=== PATIENT | male | born 1970 | race American Indian/Alaskan Native ===

== ENCOUNTER 2020-02-27 23:27 | Inpatient (IN) | payer OTHER ==
[2020-02-27] MEDS ORDERED: ASPIRIN 325 MG TAB PO ONE (23:45)
--- NOTE | 2020-02-27 23:53 | Emergency Department Report ---
ED General Adult HPI - General Chief complaint: Neuro Symptoms/Deficit Stated complaint: RT SIDE NUMBNESS/SLURRED SPEECH PUI?: No Time Seen by Provider: 02/27/20 23:49 Source: patient, RN notes reviewed Mode of arrival: Ambulatory Limitations: Physical Limitation - History of Present Illness Initial comments: The patient was evaluated in the emergency department for symptoms described in the history of present illness. He/she was evaluated in the context of the global COVID-19 pandemic, which necessitated consideration that the patient might be at risk for infection with the virus that causes COVID-19. Institutional protocols and algorithms that pertain to the evaluation of patients at risk for COVID-19 are in a state of rapid change based on information released by regulatory bodies including the CDC and federal and state organizations. These policies and algorithms were followed during the patient's care in the emergency department. Please note that these policies, procedures and recommendations changed on a rapid basis. Patient is a 49-year-old male. He is not known to myself previously. He appears to have a history of diabetes, hypertension and obesity. It is not known to me if he has a primary care doctor. He presents to the ER today with a complaint of right-sided weakness and numbness, which was present upon waking up the morning of February 27, 2020. He believes that he woke up at around 9:00 in the morning. This sensation is constant. He also endorsed to nursing staff speech disturbance. He also complains of nonradiating nonspecific central and right-sided chest pressure. He indicates this pain does not radiate to the back, arms or neck. He makes no complaint of vomiting or diaphoresis. -: hour(s), days(s) Location: chest, right, upper extremity, lower extremity Consistency: constant - Related Data Previous Rx's Medication Instructions Recorded Last Taken Type Aspirin 325 mg PO QDAY #30 tablet 03/01/20 Unknown Rx AtorvaSTATin [Lipitor] 40 mg PO QHS #30 tablet 03/01/20 Unknown Rx Clopidogrel [Plavix] 75 mg PO QDAY #21 tablet 03/01/20 Unknown Rx metFORMIN [Glucophage] 500 mg PO QDAY #30 tab 03/01/20 Unknown Rx Allergies Allergy/AdvReac Type Severity Reaction Status Date / Time No Known Allergies Allergy Verified 03/02/14 06:42 ED Review of Systems ROS: Stated complaint: RT SIDE NUMBNESS/SLURRED SPEECH Other details as noted in HPI ED Past Medical Hx - Past Medical History Previous Medical History?: Yes Hx Hypertension: Yes Hx Diabetes: Yes - Surgical History Past Surgical History?: No - Social History Smoking Status: Never Smoker Substance Use Type: None - Medications Home Medications: Home Medications Medication Instructions Recorded Confirmed Last Taken Type Aspirin 325 mg PO QDAY #30 tablet 03/01/20 Unknown Rx AtorvaSTATin [Lipitor] 40 mg PO QHS #30 tablet 03/01/20 Unknown Rx Clopidogrel [Plavix] 75 mg PO QDAY #21 tablet 03/01/20 Unknown Rx metFORMIN [Glucophage] 500 mg PO QDAY #30 tab 03/01/20 Unknown Rx ED Physical Exam - General Limitations: Physical Limitation General appearance: alert, obese - Head Head exam: Present: atraumatic, normocephalic - Eye Eye exam: Present: normal appearance, EOMI. Absent: nystagmus - ENT ENT exam: Present: normal exam, normal orophraynx, mucous membranes moist, normal external ear exam - Neck Neck exam: Present: normal inspection, full ROM. Absent: tenderness, meningismus - Respiratory Respiratory exam: Present: normal lung sounds bilaterally. Absent: respiratory distress, wheezes, rales, rhonchi, stridor, decreased breath sounds - Cardiovascular Cardiovascular Exam: Present: regular rate, normal rhythm, normal heart sounds. Absent: bradycardia, tachycardia, irregular rhythm, systolic murmur, diastolic murmur, rubs, gallop - GI/Abdominal GI/Abdominal exam: Present: soft. Absent: distended, tenderness, guarding, rebound, rigid, pulsatile mass - Rectal Rectal exam: Present: deferred - Extremities Exam Extremities exam: Present: normal inspection, full ROM, other (2+ pulses noted in the bilateral upper and lower extremities. There is no palpable cord. negative Homans sign. Muscular compartments are soft. The pelvis is stable.). Absent: pedal edema, calf tenderness - Back Exam Back exam: Present: normal inspection, full ROM. Absent: tenderness, CVA tenderness (R), CVA tenderness (L), paraspinal tenderness, vertebral tenderness - Neurological Exam Neurological exam: Present: alert, motor sensory deficit (There is 5 out of 5 strength left arm and left leg. There is 3 out of 5 strength right arm and right leg. Sensation is intact to light touch in 4 extremities.), other (There is no facial droop. The tongue is midline. The extraocular motors are intact bilaterally. There is no obvious dysphonia.) - Psychiatric Psychiatric exam: Present: flat affect - Skin Skin exam: Present: warm, dry, intact, normal color. Absent: rash ED Course Vital Signs 02/27/20 02/28/20 02/28/20 23:30 00:18 00:19 Temperature 98.2 F 98.6 F Pulse Rate 88 83 88 Respiratory 18 26 H 12 Rate Blood Pressure 192/113 Blood Pressure 162/101 [Right] O2 Sat by Pulse 98 100 98 Oximetry 02/28/20 02/28/20 02/28/20 00:31 00:45 01:01 Temperature Pulse Rate 87 83 85 Respiratory 12 14 22 Rate Blood Pressure 143/93 154/95 159/99 Blood Pressure [Right] O2 Sat by Pulse 99 100 99 Oximetry 02/28/20 02/28/20 02/28/20 01:15 01:31 01:45 Temperature Pulse Rate 91 H 90 85 Respiratory 26 H 23 25 H Rate Blood Pressure 159/99 148/106 157/95 Blood Pressure [Right] O2 Sat by Pulse 99 99 100 Oximetry 02/28/20 02/28/20 02/28/20 02:00 02:15 02:31 Temperature Pulse Rate 87 91 H 92 H Respiratory 18 20 22 Rate Blood Pressure 145/102 157/95 153/100 Blood Pressure [Right] O2 Sat by Pulse 99 98 99 Oximetry - Reevaluation(s) Reevaluation #1: 02/28/20 00:03 Differential diagnosis, including not limited to: Stroke, hemorrhagic versus ischemic, aortic dissection Assessment and plan: 49-year-old gentleman, who presents with wake-up stroke symptoms, last known well time is more than 24 hours ago, therefore, not a TPA candidate, and unlikely to benefit from emergent endovascular intervention. However, he is also endorsing chest pain, which is nonspecific, and his fairly elevated blood pressure. Therefore, we will obtain noncontrast CT scan of the brain, an emergent CT ang iogram of the head and neck to assess for large vessel occlusion, as well as ascending aortic arch disease and/or carotid disease. Aortic dissection is a potentially lethal in time sensitive diagnosis, which requires emergent imaging. Patient makes no complaint of lower abdominal pain or lower back pain. Therefore, patient is emergently and administratively consented by myself for CT angiogram of the head and neck, to assess for both large vessel occlusion, that might be amenable to endovascular intervention, and acute surgical a sending aortic disease. We will obtain neurology consult, obtain appropriate laboratory studies x-ray of the chest and an EKG. We will reassess once his initial data points have resulted. Anticipate admission to this hospital, for further diagnostic care and evaluation, assuming no condition is identified that would require transfer to higher level of care. 02/28/20 00:14 Reevaluation #2: 02/28/20 00:45 X-ray of the chest interpreted as negative for acute disease. Noncontrast CT scan of the brain negative for acute disease. Blood pressure improved in the 160s. Patient states his chest pain and pain is improved. Angiogram interpretation is pending at this time Reevaluation #3: 02/28/20 01:03 ct angio neck negative for acute findings bp 160 systolic cta head negative states no pain at this time Dr Azam Gonzales to admit 03/02/20 06:11 - Consultations Consultation #1: 02/28/20 00:14 Seen and examined by neurology on-call, Dr. Gerard, who agrees with current plan of care. If no bleed, or dissection is noted, aspirin and Plavix are recommended as dual antiplatelet therapy. ED Medical Decision Making - Lab Data Result diagrams: 02/29/20 06:24 02/29/20 06:24 Vital Signs 02/27/20 23:30 Temperature 98.2 F Pulse Rate 88 Respiratory 18 Rate Blood Pressure 192/113 O2 Sat by Pulse 98 Oximetry - EKG Data -: EKG Interpreted by Me EKG shows normal: sinus rhythm Rate: normal - EKG Data When compared to previous EKG there are: previous EKG unavailable 02/28/20 00:07 Sinus rhythm, 86 bpm, there is a leftward axis deviation, with a left anterior fascicular block, there is a right bundle branch block, the QTC is prolonged, this EKG is abnormal, and the EKG is not a STEMI. There is no prior EKG ruby ilable for comparison. - Radiology Data Radiology results: pending, report reviewed, image reviewed interpreted by me: One-view portable x-ray of the chest negative for pneumothorax, infiltrate, bony anatomy unremarkable cardia cardiac silhouette unremarkable CT angio neck INDICATION / CLINICAL INFORMATION: 49 years Male; right sided weaknss, cva, chest pain. TECHNIQUE: Thin cut axial images obtained through the head during IV bolus contrast administration. Sagittal, coronal, and 3 plane MIP reconstructions performed by the technologist. NASCET type criteria used evaluate stenoses. All CT scans at this location are performed using CT dose reduction for ALARA by means of automated exposure control. COMPARISON: None available. FINDINGS: CAROTID ARTERIES: The motion and beam hardening degrade the image quality. However, there is mild atherosclerotic plaque with small foci of calcification involving the proximal right ICA. However, there is no significant stenosis involving the ICAs bilaterally by NASCET criteria. V ERTEBRAL ARTERIES: There is calcification at the origin of the right vertebral artery with moderate to stenosis at. Otherwise I, the vertebral arteries are unremarkable without further significant narrowing. ARCH: There is no significant stenosis involving the arch vessels. ADDITIONAL FINDINGS: Remainder of the surrounding soft tissues are grossly normal. IMPRESSION: There is mild atherosclerotic plaque involving the proximal right ICA. However, there is no significant stenosis involving carotid arteries bilaterally by NASCET criteria. There is calcification at the origin of the right vertebral artery with moderate stenosis. Signer Name: Ed Chester MD Signed: 02/27/2020 11:57 PM Workstation Name: [id number] Critical care attestation.: If time is entered above; I have spent that time in minutes in the direct care of this critically ill patient, excluding procedure time. ED Disposition Clinical Impression: Stroke, Hypertension, Hyperglycemia, Acute chest pain Disposition: -09 OP ADMIT IP TO THIS HOSP Is pt being admited?: Yes Does the pt Need Aspirin: Yes (given) Condition: Stable - Assessment Assessment Interval: Baseline - Level of Consciousness 1a. Level of Consciousness: alert/keenly responsive - LOC Questions 1b. LOC Questions: answers both correctly - LOC Command 1c. LOC Commands: performs tasks correctly - Best Gaze 2. Best Gaze: normal - Visual 3. Visual: no visual loss - Facial Palsy 4. Facial Palsy: normal symmetrical movement - Motor Arm 5a. Motor Arm Left: no drift 5b. Motor Arm Right: some gravity effort - Motor Leg 6a. Motor Leg Left: no drift 6b. Motor Leg Right: some gravity effort - Limb Ataxia 7. Limb Ataxia: present 1 limb - Sensory 8. Sensory: normal - Best Language 9. Best Language: no aphasia - Dysarthria 10. Dysarthria: normal - Extinction and Inattention 11. Extinction/Inattention: no abnormality - Scoring Total Score: 5 Stroke Severity: Moderate Stroke Heart Score - HEART Score History: Slightly suspicious EKG: Non-specific Age: 45-65 Risk factors: > 3 risk factors or hx of atherosclerotic disease Troponin: < normal limit HEART Score: 4 - Critical Actions Critical Actions: 4-6 pts:12-16.6% risk of adverse cardiac event. Should be admitted
--- NOTE | 2020-02-28 00:13 | Emergency Department Report ---
ED Neuro Deficit HPI - General Chief Complaint: Neuro Symptoms/Deficit Stated Complaint: RT SIDE NUMBNESS/SLURRED SPEECH Time Seen by Provider: 02/27/20 23:49 Source: patient, RN notes reviewed Mode of arrival: Ambulatory Limitations: Physical Limitation - History of Present Illness -: Sudden Location: speech, right face, right arm, right leg - Related Data Home Medications: Home Medications Medication Instructions Recorded Confirmed Last Taken Metformin HCl [Metformin HCl ER] 500 mg PO BID 03/02/14 03/02/14 Unknown lisinopriL [Lisinopril] 10 mg PO DAILY 03/02/14 03/02/14 Unknown Previous Rx's Medication Instructions Recorded Last Taken Type Ondansetron [Zofran Odt] 8 mg PO TID PRN #10 tab.rapdis 03/02/14 Unknown Rx Tamsulosin [Flomax] 0.4 mg PO QDAY #5 cap 03/02/14 Unknown Rx oxyCODONE /ACETAMINOPHEN [Percocet 1 tab PO Q6HR PRN #20 tablet 03/02/14 Unknown Rx 5/325 mg] Allergies/Adverse Reactions: Allergies Allergy/AdvReac Type Severity Reaction Status Date / Time No Known Allergies Allergy Verified 03/02/14 06:42 ED Review of Systems ROS: Stated complaint: RT SIDE NUMBNESS/SLURRED SPEECH Other details as noted in HPI ED Past Medical Hx - Past Medical History Previous Medical History?: Yes Hx Hypertension: Yes Hx Diabetes: Yes - Surgical History Past Surgical History?: No - Social History Smoking Status: Never Smoker Substance Use Type: None - Medications Home Medications: Home Medications Medication Instructions Recorded Confirmed Last Taken Type Metformin HCl [Metformin HCl ER] 500 mg PO BID 03/02/14 03/02/14 Unknown History Ondansetron [Zofran Odt] 8 mg PO TID PRN #10 tab.rapdis 03/02/14 Unknown Rx Tamsulosin [Flomax] 0.4 mg PO QDAY #5 cap 03/02/14 Unknown Rx lisinopriL [Lisinopril] 10 mg PO DAILY 03/02/14 03/02/14 Unknown History oxyCODONE /ACETAMINOPHEN [Percocet 1 tab PO Q6HR PRN #20 tablet 03/02/14 Unknown Rx 5/325 mg] ED Neuro Physical Exam - General Limitations: Physical Limitation General appearance: alert, obese Suspected Stroke: Yes - NIHSS Assessment Interval: Baseline 1a. Level of Consciousness: alert/keenly responsive 1b. LOC Questions: answers both correctly 1c. LOC Commands: performs tasks correctly 2. Best Gaze: normal 3. Visual: no visual loss 4. Facial Palsy: minor paralysis 5b. Motor Arm Right: drift 5a. Motor Arm Left: no drift 6a. Motor Leg Left: no drift 6b. Motor Leg Right: drift 7. Limb Ataxia: absent 8. Sensory: normal 9. Best Language: no aphasia 10. Dysarthria: mild/moderate dysarthria 11. Extinction/Inattention: no abnormality Total Score: 4 Stroke Severity: Minor Stroke ED Course Vital Signs 02/27/20 23:30 Temperature 98.2 F Pulse Rate 88 Respiratory 18 Rate Blood Pressure 192/113 O2 Sat by Pulse 98 Oximetry - Consultations Consultation #1: 02/28/20 00:11 [facility] Date of Service: 02/27/2020 23:50:22 Impression: Rule Out Acute Ischemic Stroke Small Vessel Infarct Left Hemispheric Infarct Comments/Sign-Out: Patient presents with right sided weakness, slurred speech that began this morning around 11am. Presentation may be c/w left hemispheric subcortical ischemia, given rf of HTN, HLD and diabetes. May involve deep is architect branches. No role for alteplase given >4.5 hrs, no clinical evidence of LVO. Admit for full stroke workup Mechanism of Stroke: Small Vessel Disease Metrics: Last Known Well: 02/27/2020 10:00:00 [employer] Notification Time: 02/27/2020 23:49:43 Arrival Time: 02/27/2020 23:30:00 Stamp Time: 02/27/2020 23:50:22 Time First Login Attempt: 02/27/2020 23:54:53 Video Start Time: 02/27/2020 23:54:53 Symptoms: right sided numbness and slurred speech NIHSS Start Assessment Time: 02/27/2020 23:58:41 Patient is not a candidate for Alteplase/Activase. Patient was not deemed candidate for Alteplase/Activase thrombolytics because of Last Well Known Above 4.[address] head showed no acute hemorrhage or acute core infarct. CT head was reviewed. Clinical Presentation is not Suggestive of Large Vessel Occlusive Disease ED Physician notified of diagnostic impression and management plan on 02/28/2020 00:06:53 Our recommendations are outlined below. Recommendations: Activate Stroke Protocol Admission/Order Set Stroke/Telemetry Floor Neuro Checks Bedside Swallow Eval DVT Prophylaxis IV Fluids, Normal Saline Head of Bed 30 Degrees Euglycemia and Avoid Hyperthermia (PRN Acetaminophen) Initiate Aspirin Initiate Plavix initiate asa and plavix statin Sign Out: Discussed with Emergency Department Provider History of Present Illness: Patient is a 49 year old Male. Patient was brought by private transportation with symptoms of right sided numbness and slurred speech Patient was well until 10-11am and began developing slurred speech and right sided weakness. No dysphagia, no falls, no dizziness or headaches. He was reporting chest pain. No prior hx of strokes, denies tobacco use, hx of HTN, HLD and diabetes. no anticoagulant use. Last seen normal was beyond 4.5 hours of presentation. There is no history of hemorrhagic complications or intracranial hemorrhage. There is no history of Recent Anticoagulants. There is no history of recent major surgery. There is no history of recent stroke. Past Medical History: Hypertension Diabetes Mellitus Hyperlipidemia There is NO history of Atrial Fibrillation There is NO history of Coronary Artery Disease There is NO history of Stroke Anticoagulant use: No Antiplatelet use: No Examination: BP(192/113), Pulse(88), Blood Glucose(255) 1A: Level of Consciousness - Alert; keenly responsive + 0 1B: Ask Month and Age - Both Questions Right + 0 1C: Blink Eyes & Squeeze Hands - Performs Both Tasks + 0 2: Test Horizontal Extraocular Movements - Normal + 0 3: Test Visual Mauro - No Visual Loss + 0 4: Test Facial Palsy (Use Grimace if Obtunded) - Minor paralysis (flat nasolabial fold, smile asymmetry) + 1 5A: Test Left Arm Motor Drift - No Drift for 10 Seconds + 0 5B: Test Right Arm Motor Drift - Drift, but doesn't hit bed + 1 6A: Test Left Leg Motor Drift - No Drift for 5 Seconds + 0 6B: Test Right Leg Motor Drift - Drift, but doesn't hit bed + 1 7: Test Limb Ataxia (FNF/Heel-Pearson) - No Ataxia + 0 8: Test Sensation - Normal; No sensory loss + 0 9: Test Language/Aphasia - Normal; No aphasia + 0 10: Test Dysarthria - Mild-Moderate Dysarthria: Slurring but can be understood + 1 11: Test Extinction/Inattention - No abnormality + 0 NIHSS Score: 4 Patient/Family was informed the Neurology Consult would happen via TeleHealth consult by way of interactive audio and video telecommunications and consented to receiving care in this manner. Due to the immediate potential for life-threatening deterioration due to underlying acute neurologic illness, I spent 23 minutes providing critical care. This time includes time for face to face visit via telemedicine, review of medical records, imaging studies and discussion of findings with providers, the patient and/or family. Dr Martine Beltrán [employer] Case [id number] - Lab Data Lab Results 02/27/20 Range/Units 23:47 POC Glucose 255 H (70-105) Critical care attestation.: If time is entered above; I have spent that time in minutes in the direct care of this critically ill patient, excluding procedure time. ED Disposition Clinical Impression: Stroke Disposition: DC-09 OP ADMIT IP TO THIS HOSP Is pt being admited?: Yes Does the pt Need Aspirin: Yes Referrals: PRIMARY CARE, [Primary Care Provider] - 3-5 Days
[2020-02-28] MEDS ORDERED: ASPIRIN 325 MG TAB ONE (00:23)
[2020-02-28 00:30] LABS: BUN/Creatinine Ratio 12; Blood Urea Nitrogen 16 mg/dL (9-20); Calcium 9.2 mg/dL (8.4-10.2); Hemolysis Index 7
[2020-02-28] MEDS ORDERED: SODIUM CHLORIDE 0.9% 500 ML 500 ML IV ONE (00:31)
[2020-02-28] MEDS ORDERED: NITROGLYCERIN 0.4 MG TAB SUBL SL PRN (00:31)
[2020-02-28] MEDS ORDERED: fentaNYL 100 MCG/2 ML INJ IV ONE (00:31)
[2020-02-28] MEDS ORDERED: INSULIN REGULAR, HUMAN 100 UNIT/ML 3ML VIAL IV ONE (00:31)
[2020-02-28 00:40] LABS: Basophils % (Auto) 0.3 % (0.0-1.8); Eosinophils # (Auto) 0.1 K/mm3 (0.0-0.4); Eosinophils % (Auto) 0.7 % (0.0-4.3); Hematocrit 38.9 % (35.5-45.6); Hemoglobin 13.9 gm/dl (11.8-15.2); Lymphocytes # (Auto) 3.5 K/mm3 (1.2-5.4); Lymphocytes % (Auto) 30.4 % (13.4-35.0); Mean Corpuscular HGB Conc 36 % (32-34); Mean Corpuscular Volume 84 fl (84-94); Monocytes # (Auto) 0.8 K/mm3 (0.0-0.8); Monocytes % (Auto) 6.7 % (0.0-7.3); Platelet Count 231 K/mm3 (140-440); Red Blood Count 4.63 M/mm3 (3.65-5.03); Red Cell Distribution Width 13.5 % (13.2-15.2)
--- NOTE | 2020-02-28 00:40 | XRay Report ---
CHEST 1 VIEW INDICATION: Chest Pain COMPARISON: 05/22/2010 FINDINGS: Support devices: None Heart: Normal and unchanged Lungs/Pleura: No acute pulmonary or pleural findings. IMPRESSION: 1. No acute disease and no interval change. Signer Name: Joe Castro MD Signed: 02/28/2020 12:36 AM Workstation Name: [id number]
--- NOTE | 2020-02-28 00:43 | Cat Scan Report ---
CT head/brain wo con INDICATION: slurred speech left sided weakness. TECHNIQUE: All CT scans at this location are performed using CT dose reduction for ALARA by means of automated e xposure control. COMPARISON: None available. FINDINGS: Visualized paranasal and mastoid sinuses are clear. Ventricles are symmetrical and normal in size. No mass, hemorrhage or other acute abnormality. IMPRESSION: 1. No acute abnormality. Signer Name: Joe Castro MD Signed: 02/28/2020 12:38 AM Workstation Name: [id number]
[2020-02-28 00:47] LABS: INR 0.9 (0.87-1.13); Partial Thromboplastin Time 26.7 Sec. (24.2-36.6)
--- NOTE | 2020-02-28 01:02 | Cat Scan Report ---
CT angio neck INDICATION / CLINICAL INFORMATION: 49 years Male; right sided weaknss, cva, chest pain. TECHNIQUE: Thin cut axial images obtained through the head during IV bolus contrast administration. S agittal, coronal, and 3 plane MIP reconstructions performed by the technologist. NASCET type criteria used evaluate stenoses. All CT scans at this location are performed using CT dose reduction for ALAR A by means of automated exposure control. COMPARISON: None available. FINDINGS: CAROTID ARTERIES: The motion and beam hardening degrade the image quality. However, there is mild ath erosclerotic plaque with small foci of calcification involving the proximal right ICA. However, there is no significant stenosis involving the ICAs bilaterally by NASCET criteria. VERTEBRAL ARTERIES: There is calcification at the origin of the right vertebral artery with moderate to stenosis at. Otherwise I, the vertebral arteries are unremarkable without further significant narr owing. ARCH: There is no significant stenosis involving the arch vessels. ADDITIONAL FINDINGS: Remainder of the surrounding soft tissues are grossly normal. IMPRESSION: There is mild atherosclerotic plaque involving the proximal right ICA. However, there is no significa nt stenosis involving carotid arteries bilaterally by NASCET criteria. There is calcification at the origin of the right vertebral artery with moderate stenosis. Signer Name: Ed Chester MD Signed: 02/28/2020 12:57 AM Workstation Name: [id number]
[2020-02-28] MEDS ORDERED: CLOPIDOGREL 75 MG TAB PO ONE (01:03)
[2020-02-28] MEDS ORDERED: ASPIRIN 81 MG TAB CHEW PO ONE (01:03)
--- NOTE | 2020-02-28 01:12 | Cat Scan Report ---
CT angio head INDICATION / CLINICAL INFORMATION: 49 years Male; right sided weaknss, cva, chest pain. TECHNIQUE: Thin cut axial images obtained through the head during IV bolus contrast administration. S agittal, coronal, and 3 plane MIP reconstructions performed by the technologist. NASCET type criteria used evaluate stenoses. Automated exposure control utilized for radiation reduction purposes. COMPARISON: None available. FINDINGS: INTERNAL CAROTID ARTERIES: The motion as well as the timing bolus with admixture of contrast within t he cavernous sinuses degrade the image quality. However, there is mild calcification involving distal internal carotid arteries without significant stenosis by NASCET criteria. VERTEBROBASILAR SYSTEM: There is also mild calcification involving distal vertebral arteries with mil d stenosis at. There is no significant narrowing of the basilar artery. CEREBRAL ARTERIES: The proximal cerebral arteries and adjacent branches appear to demonstrate appropr iate caliber without significant focal stenosis or evidence of large vessel occlusion. ANEURYSM: None identified. ADDITIONAL FINDINGS: The dural venous sinuses opacify with contrast. IMPRESSION: There is mild calcification involving the intracranial vertebral arteries with mild narrowing. There is no clear CTA evidence of significant stenosis involving remaining intracranial vessels or la rge vessel occlusion. Signer Name: Ed Chester MD Signed: 02/28/2020 1:07 AM Workstation Name: [id number]
[2020-02-28] MEDS ORDERED: ONDANSETRON 4 MG/2 ML INJ IV PRN ×2 (01:33)
[2020-02-28] MEDS ORDERED: ACETAMINOPHEN 325 MG TAB PO PRN ×2 (01:33)
[2020-02-28] MEDS ORDERED: MAGNESIUM HYDROXIDE (MOM) ORAL LIQD UDC PO PRN ×2 (01:33)
[2020-02-28] MEDS ORDERED: DEXTROSE 50% IN WATER (25GM) 50 ML SYRINGE IV PRN (01:33)
[2020-02-28] MEDS ORDERED: PROMETHAZINE 25 MG RECT SUPP PR PRN (01:33)
[2020-02-28] MEDS ORDERED: METOCLOPRAMIDE 10 MG TAB PO PRN (01:33)
--- NOTE | 2020-02-28 01:40 | History and Physical Report ---
History of Present Illness Date of examination: 02/28/20 Date of admission: 02/28/20 01:04 Chief complaint: Right sided Weakness Facial droop History of present illness: 49-year-old -[place] Citizen male with known history of hypertension and diabetes mellitus presented to the emergency room today with right-sided weakness and numbness which started early this morning. Patient was said to have woken up at about 9 AM in the morning of 02/27/2020 and noticed that he had some right-sided weakness. He also had some speech difficulty and feels he had some facial asymmetry. He denies any headache or dizziness, no nausea vomiting, no fever or chills, denies any blurry vision. No cough or shortness of breath. Patient states that he had some right-sided chest pain which has since resolved. Patient was evaluated by the tele neurologist and deemed not to be a TPA candidate. Aspirin and Plavix were recommended. Patient to be worked up for possible CVA. Past History Past Medical History: diabetes, hypertension Past Surgical History: No surgical history Social history: no significant social history Family history: no significant family history Medications and Allergies Allergies Allergy/AdvReac Type Severity Reaction Status Date / Time No Known Allergies Allergy Verified 03/02/14 06:42 Home Medications Medication Instructions Recorded Confirmed Last Taken Type Metformin HCl [Metformin HCl ER] 500 mg PO BID 03/02/14 03/02/14 Unknown History Ondansetron [Zofran Odt] 8 mg PO TID PRN #10 tab.rapdis 03/02/14 Unknown Rx Tamsulosin [Flomax] 0.4 mg PO QDAY #5 cap 03/02/14 Unknown Rx lisinopriL [Lisinopril] 10 mg PO DAILY 03/02/14 03/02/14 Unknown History oxyCODONE /ACETAMINOPHEN [Percocet 1 tab PO Q6HR PRN #20 tablet 03/02/14 Unknown Rx 5/325 mg] Active Meds: Active Medications Acetaminophen (Tylenol) 650 mg PO Q4H PRN PRN Reason: Pain, Mild (1-3) Bisacodyl (Dulcolax) 10 mg SD QDAY PRN PRN Reason: Constipation Dextrose (D50w (25gm) Syringe) 50 ml IV Q30MIN PRN; Protocol PRN Reason: Hypoglycemia Magnesium Hydroxide (Milk Of Magnesia) 30 ml PO Q4H PRN PRN Reason: Constipation Metoclopramide HCl (Reglan) 10 mg PO Q6H PRN PRN Reason: Nausea And Vomiting Nitroglycerin (Nitrostat) 0.4 mg SL .Q5MIN PRN PRN Reason: Chest Pain Ondansetron HCl (Zofran) 4 mg IV Q8H PRN PRN Reason: Nausea And Vomiting Promethazine HCl (Phenergan) 25 mg SD Q6H PRN PRN Reason: Nausea And Vomiting Sodium Chloride (Sodium Chloride Flush Syringe 10 Ml) 10 ml INJ PRN PRN PRN Reason: LINE FLUSH Review of Systems Constitutional: no fever, no chills Ears, nose, mouth and throat: no nasal congestion, no sore throat Cardiovascular: chest pain (Right Sided), no palpitations Respiratory: no cough, no shortness of breath Gastrointestinal: no abdominal pain, no nausea, no vomiting, no diarrhea Genitourinary Male: no dysuria, no hematuria, no nocturia Musculoskeletal: no neck pain, no low back pain Integumentary: no rash, no pruritis Neurological: no headaches, no confusion Psychiatric: no anxiety, no depression Exam - Constitutional Vitals: Temp Pulse Resp BP Pulse Ox 98.6 F 90 23 148/106 99 02/28/20 00:19 02/28/20 01:31 02/28/20 01:31 02/28/20 01:31 02/28/20 01:31 General appearance: Present: no acute distress, well-nourished, obese - EENT Eyes: Present: PERRL, EOM intact ENT: hearing intact, clear oral mucosa, dentition normal - Neck Neck: Present: supple, normal ROM - Respiratory Respiratory effort: normal Respiratory: bilateral: CTA - Cardiovascular Rhythm: regular Heart Sounds: Present: S1 & S2. Absent: gallop, systolic murmur, diastolic murmur, rub - Extremities Extremities: no ischemia, No edema, Full ROM Peripheral Pulses: within normal limits - Abdominal General gastrointestinal: Present: soft, non-tender, non-distended, normal bowel sounds. Absent: mass - Integumentary Integumentary: Present: clear, warm, dry - Musculoskeletal Musculoskeletal: right sided weakness - Psychiatric Psychiatric: appropriate mood/affect, intact judgment & insight, memory intact - Neurologic Neurologic: CNII-XII intact, no focal deficits, moves all extremities HEART Score - HEART Score EKG: Non-specific Age: 45-65 Risk factors: > 3 risk factors or hx of atherosclerotic disease Troponin: Troponin T < 0.010 ng/mL (0.00-0.029) 02/27/20 23:58 Troponin: < normal limit - Critical Actions Critical Actions: 4-6 pts:12-16.6% risk of adverse cardiac event. Should be admitted Results - Labs CBC & Chem 7: 02/27/20 23:58 02/27/20 23:58 Labs: Abnormal lab results 02/27/20 02/27/20 02/27/20 Range/Units 23:47 23:58 23:58 WBC 11.5 H (4.5-11.0) K/mm3 MCHC 36 H (32-34) % Glucose 315 H (75-100) mg/dL POC Glucose 255 H (70-105) Total Creatine Kinase (55-170) units/L Acetaminophen (10.0-30.0) ug/mL 02/28/20 02/28/20 Range/Units 00:00 00:00 WBC (4.5-11.0) K/mm3 MCHC (32-34) % Glucose (75-100) mg/dL POC Glucose (70-105) Total Creatine Kinase 343 H (55-170) units/L Acetaminophen 5.0 L (10.0-30.0) ug/mL Assessment and Plan - Patient Problems (1) Stroke Current Visit: Yes Status: Acute Plan to address problem: Patient to be observed in telemetry. We will schedule patient for carotid Doppler, MRI of the brain and echocardiogram. We will request neurology evaluation and recommendation. Patient will be placed on aspirin, Plavix and statin. We will get physical therapy and Occupational Therapy consults. (2) Hyperglycemia Current Visit: Yes Status: Acute Plan to address problem: We will monitor Accu-Cheks closely. Will place on sliding scale insulin. (3) Chest pain Current Visit: Yes Status: Acute Plan to address problem: Atypical. Chest pain has since resolved. However we will monitor cardiac enzymes. (4) Hypertension Current Visit: Yes Status: Acute Plan to address problem: We will resume routine home medications and monitor vital signs closely. (5) DVT prophylaxis Current Visit: Yes Status: Acute Plan to address problem: Patient placed on subcutaneous Lovenox. (6) Full code status Current Visit: Yes Status: Acute
[2020-02-28] MEDS ORDERED: CLOPIDOGREL 75 MG TAB ONE (01:44)
[2020-02-28] MEDS ORDERED: ASPIRIN 81 MG TAB CHEW ONE (01:46)
--- NOTE | 2020-02-28 08:57 | Event Note ---
Date: 02/28/20 Patient seen and examined. This is a follow-up from an admission earlier this morning. We will continue to plan as outlined in the H&P. Total visit time equals 35 minutes with > 50% spent on coordination of care and counseling.
[2020-02-28] MEDS: ASPIRIN 325 MG TAB PO SCH (09:30)
[2020-02-28] MEDS: INSULIN LISPRO 100 UNIT/ML VIAL 3 mL SUB-Q SCH ×4 (09:30→21:54)
--- NOTE | 2020-02-28 11:06 | Consultation ---
History of Present Illness Consult date: 02/28/20 Requesting physician: RADHA DELGADO Reason for Consult: Acute Ischemic Stroke Chief complaint: Right-sided weakness w/ slurred speech History of present illness: 49 yo male with hypertension, dm, obesity, presents with a LKNormal time of 02/26/2020 when he went to bed at 23:00. He woke up around 9:00 am on 02/27/2020 and noticed right-sided weakness and some right-sided chest pain. He presented to the ED and was evaluated by teleneurology and noted with a NIHSS of 4. Patient underwent a stat NCHCT and CTA Head/Neck which were unrevealing for an acute process. Patient presented outside the IV-tPA window and no emergent EDILIA was indicated. He notes currently that the slurred speech has worsened a bit but his right arm and leg feel feel steadily weak, like yesterday. He notes he has been in his usual state of health. Notes he has not been taking any of his medications. Past History Past Medical History: diabetes, hypertension Past Surgical History: No surgical history Social history: no significant social history Family history: no significant family history Medications and Allergies Allergies Allergy/AdvReac Type Severity Reaction Status Date / Time No Known Allergies Allergy Verified 03/02/14 06:42 Home Medications Medication Instructions Recorded Confirmed Last Taken Type Metformin HCl [Metformin HCl ER] 500 mg PO BID 03/02/14 03/02/14 Unknown History Ondansetron [Zofran Odt] 8 mg PO TID PRN #10 tab.rapdis 03/02/14 Unknown Rx Tamsulosin [Flomax] 0.4 mg PO QDAY #5 cap 03/02/14 Unknown Rx lisinopriL [Lisinopril] 10 mg PO DAILY 03/02/14 03/02/14 Unknown History oxyCODONE /ACETAMINOPHEN [Percocet 1 tab PO Q6HR PRN #20 tablet 03/02/14 Unknown Rx 5/325 mg] Active Meds: Active Medications Acetaminophen (Tylenol) 650 mg PO Q4H PRN PRN Reason: Pain, Mild (1-3) Aspirin (Aspirin) 325 mg PO QDAY TANYA Last Admin: 02/28/20 09:30 Dose: 325 mg Documented by: Atorvastatin Calcium (Lipitor) 40 mg PO QHS TANYA Bisacodyl (Dulcolax) 10 mg UT QDAY PRN PRN Reason: Constipation Dextrose (D50w (25gm) Syringe) 0 ml IV Q30MIN PRN; Protocol PRN Reason: Hypoglycemia Enoxaparin Sodium (Enoxaparin) 40 mg SUB-Q QDAY@2200 TANYA; Protocol Insulin Human Lispro (Humalog) 0 unit SUB-Q ACHS TANYA; Protocol Last Admin: 02/28/20 09:30 Dose: 3 unit Documented by: Magnesium Hydroxide (Milk Of Magnesia) 30 ml PO Q4H PRN PRN Reason: Constipation Metoclopramide HCl (Reglan) 10 mg PO Q6H PRN PRN Reason: Nausea And Vomiting Nitroglycerin (Nitrostat) 0.4 mg SL .Q5MIN PRN PRN Reason: Chest Pain Ondansetron HCl (Zofran) 4 mg IV Q8H PRN PRN Reason: Nausea And Vomiting Promethazine HCl (Phenergan) 25 mg UT Q6H PRN PRN Reason: Nausea And Vomiting Sodium Chloride (Sodium Chloride Flush Syringe 10 Ml) 10 ml IV BID [facility] [place] Last Admin: 02/28/20 09:30 Dose: 10 ml Documented by: Sodium Chloride (Sodium Chloride Flush Syringe 10 Ml) 10 ml IV PRN PRN PRN Reason: LINE FLUSH Review of Systems All systems: negative (as per HPI;) Physical Examination - Vital Signs Vital Signs: Vital Signs Temp Pulse Resp BP Pulse Ox 98.2 F 88 18 192/113 98 02/27/20 23:30 02/27/20 23:30 02/27/20 23:30 02/27/20 23:30 02/27/20 23:30 - Additional Exam Additional Exam: Gen: nad, well-nourished; Head: normocephalic; Eyes: anicteric sclera, no gaze deviation; no ptosis; ENT: normal vocalization; CVS: warm and well-perfused; Pulm: no respiratory distress; GI: non-distended; Ext: no cyanosis or edema at distal extremities; Skin: no acute rash or hives at distal extremities; Heme: no pathologic bruising or ecchymosis at distal extremities; Neuro: alert, oriented to name, age, month, surroundings, moderate dysarthria, no aphasia, CN 2 - PERRL, visual morales grossly intact, CN 3, 4, 6 - EOMI, CN 5 - facial sensation symmetric to light touch, CN 7 - facial movement symmetric except decreased NLF on the right w/ slight droop, CN 8 - hearing grossly intact, CN 9, 10 - uvula midline, CN 11 - shrug decreased on the right slightly, CN 12 - tongue midline; Motor - at least 3+/5 at right exts and at least 4+/5 at left extremities; Sensory - light touch symmetric, Cerebellar - fnf and hts deficit on the right secondary to weakness, Gait - deferred secondary to fall risk. NIHSS (1a.) Level of Consciousness: 0 (1b.) LOC Questions: 0 (1c.) LOC Commands: 0 (2.) Best Gaze: 0 (3.) Visual: 0 (4.) Facial Palsy: 1 (5a.) Motor Arm, Left: 0 (5b.) Motor Arm, Right: 1 (6a.) Motor Leg, Left: 0 (6b.) Motor Leg, Right: 1 (7.) Limb Ataxia: 0 (8.) Sensory: 0 (9.) Best Language: 0 (10.) Dysarthria: 2 (11.) Extinction and Inattention: 0 NIHSS Total Score: 5 Results - Laboratory Findings CBC and BMP: 02/27/20 23:58 02/27/20 23:58 Abnormal Lab Findings: Abnormal Labs 02/27/20 02/27/20 02/27/20 23:47 23:58 23:58 WBC 11.5 H MCHC 36 H Glucose 315 H POC Glucose 255 H Hemoglobin A1c Total Creatine Kinase Acetaminophen 02/28/20 02/28/20 02/28/20 00:00 00:00 04:00 WBC MCHC Glucose POC Glucose Hemoglobin A1c 10.2 H Total Creatine Kinase 343 H Acetaminophen 5.0 L 02/28/20 07:29 WBC MCHC Glucose POC Glucose 207 H Hemoglobin A1c Total Creatine Kinase Acetaminophen - Diagnostic Findings Additional findings: NCHCT images reviewed; CTA reports reviewed; MRI images shown and reviewed with the patient; Assessment and Plan 49 yo male with htn, dm, obestiy, noncompliance, presenting with a LKNormal time of 23:00 on 02/26/2020 and then waking up on 02/27/2020 at 9:00 am with noted r ight-sided weakness w/ some chest pressure. MRI reveals an acute left pontine infarction. 1. Acute Ischemic Stroke (lacunar infarction): ASA 325 mg PO qday; Plavix 75 mg PO qday x 21 days only; MRI Brain w/o contrast confirms the left pontine infarction, CTA Head/Neck reveals atherosclerotic disease; TTEcho reveals an EF of 60-65%; check LDL; elevated HgbA1C and a normalTSH noted, telemetry, SBP goal 160-200 mmHg and DBP 80-100 mmHg for 3 more days prior to slowly titrating down to normotension. Statin therapy for a goal LDL of 70, when patient passes swallow evaluation. PT/OT/ST/Swallow evaluation. Long-term risk-factor modification, including a strict diet/exercise regimen for secondary stroke prophylaxis. 2. Hypertension - goal SBP 160-200 mmHg and DBP 80-200 mmHg for 3 more days prior to slowly titrating down to normotension. 3. Diabetes Mellitus - maintain euglycemia; significantly elevated A1C noted. 4. Hyperlipidemia - goal LDL of 70 w/ statin (Lipitor 80 mg PO qhs) therapy if no contraindications. 5. Dysarthria / Dysphagia - st / swallow evaluation/monitoring. 6. Right-sided weakness - pt/ot evaluation/monitoring. 7. Unsteady Gait - pt/ot evaluation/monitoring. 8. Noncompliance - recommend case management for financial resources. 9. Followup with Stroke Neurology in 4 to 6 weeks. Please reconsult neurology with any questions. Rufino Silverman MD Tele-Neurology - Patient Problems (1) Right hemiparesis Current Visit: Yes Status: Acute (2) Unsteady gait Current Visit: Yes Status: Acute (3) Dysarthria Current Visit: Yes Status: Acute (4) Hyperglycemia Current Visit: Yes Status: Acute (5) Hypertension Current Visit: Yes Status: Acute (6) Stroke Current Visit: Yes Status: Acute
--- NOTE | 2020-02-28 13:10 | Magnetic Resonance Report ---
MRI BRAIN WITHOUT CONTRAST INDICATION / CLINICAL INFORMATION: Right-sided weakness. TECHNIQUE: Multiplanar, multisequence MR images of the brain were obtained. COMPARISON: Head CT on 02/27/2020 FINDINGS: BRAIN / INTRACRANIAL CONTENTS: There is an acute lacunar infarct in the left paracentral brandon. There is no associated hemorrhage or adverse mass effect. There is no other acute infarct. Ventricular and cisternal size appears normal for age. There is no evidence of mass lesion or hydrocephalus. There is mild chronic small vessel ischemic change in the cerebral white matter. CRANIOCERVICAL JUNCTION: No significant abnormality. VASCULAR FLOW-VOIDS: No significant abnormality. ORBITS: No significant abnormality of visualized orbits. SINUSES / MASTOIDS: No significant abnormality of visualized sinuses and mastoid air cells. ADDITIONAL FINDINGS: None. IMPRESSION: 1. Acute lacunar infarct in the left paracentral brandon within a pontine business applications specialist territory without a ssociated hemorrhage or adverse mass effect. Signer Name: Ebenezer Silverio MD Signed: 02/28/2020 1:05 PM Workstation Name: [id number]
--- NOTE | 2020-02-28 13:17 | Vascular Lab Report ---
BILATERAL CAROTID DOPPLER ULTRASOUND INDICATION : stroke TECHNIQUE: Grayscale and color Doppler imaging performed through the neck. COMPARISON: None FINDINGS: Right: There is there is mild smooth noncalcified plaque in the distal CCA and carotid bulb. Peak s ystolic velocity in the CCA is 87 cm/s with end-diastolic velocity of 19 cm/s. Peak systolic velocity in the proximal ICA is 73 cm/s with end-diastolic velocity of 30 cm/s. ICA to CCA ratio is less than 2. There is antegrade flow in the ECA and the vertebral artery. Left: There is no significant atherosclerotic disease. Peak systolic velocity in the CCA is 75 cm/s w ith end-diastolic velocity of 26 cm/s. Peak systolic velocity in the proximal ICA is 72 cm/s with end -diastolic velocity of 17 cm/s. ICA to CCA ratio is less than 2. There is antegrade flow in the ECA and the vertebral artery. IMPRESSION: No hemodynamically significant stenosis by NASCET criteria. Doppler velocities indicate l ess than 50% luminal narrowing throughout both carotid systems. Signer Name: Ronny Mccoy Jr, MD Signed: 02/28/2020 1:13 PM Workstation Name: [id number]
[2020-02-28] MEDS: ENOXAPARIN 40 MG/0.4 ML INJ SUB-Q SCH (21:54)
[2020-02-29 06:54] LABS: Basophils # (Auto) 0.1 K/mm3 (0.0-0.1); Basophils % (Auto) 0.6 % (0.0-1.8); Eosinophils % (Auto) 0.4 % (0.0-4.3); Hematocrit 41.8 % (35.5-45.6); Hemoglobin 14.6 gm/dl (11.8-15.2); Lymphocytes # (Auto) 2.4 K/mm3 (1.2-5.4); Lymphocytes % (Auto) 27.5 % (13.4-35.0); Mean Corpuscular HGB Conc 35 % (32-34); Mean Corpuscular Volume 86 fl (84-94); Monocytes # (Auto) 0.6 K/mm3 (0.0-0.8); Monocytes % (Auto) 6.9 % (0.0-7.3); Platelet Count 225 K/mm3 (140-440); Red Blood Count 4.88 M/mm3 (3.65-5.03); Red Cell Distribution Width 13.3 % (13.2-15.2)
[2020-02-29 07:08] LABS: INR 1.01 (0.87-1.13)
[2020-02-29 07:14] LABS: BUN/Creatinine Ratio 12; Blood Urea Nitrogen 13 mg/dL (9-20); Calcium 9.2 mg/dL (8.4-10.2); Chol/HDL Ratio 5.42 %; HDL Cholesterol 38 mg/dL (40-59); Hemolysis Index 2; LDL Cholesterol,Direct 148 mg/dL (50-130)
[2020-02-29] MEDS: INSULIN LISPRO 100 UNIT/ML VIAL 3 mL SUB-Q SCH ×4 (08:42→22:33)
--- NOTE | 2020-02-29 10:45 | Progress Note ---
Assessment and Plan Assessment and plan: --Acute stroke/CVA with right hemiparesis/dysarthria Current Visit: Yes Status: Acute Plan to address problem: Patient is not a candidate for TPA Had extensive neuro work-up Consistent with left CVA with right hemiparesis and dysarthria aspirin, Plavix and statin. PT and OT, speech therapy ,rehab Neuro evaluation recommendations noted and appreciated --Type 2 diabetes mellitus ; A1c 10.2 Current Visit: Yes Status: Acute Plan to address problem: Accu-Cheks sliding scale coverage ADA diet, insulin as needed --Atypical chest pain Current Visit: Yes Status: Acute Plan to address problem: Resolved -- Hypertension Current Visit: Yes Status: Acute Plan to address problem: Permissive hypertension per stroke protocols Continue current antihypertensives and PRN medications --DVT prophylaxis Current Visit: Yes Status: Acute Plan to address problem: Patient placed on subcutaneous Lovenox. -- Full code status Current Visit: Yes Status: Acute Closely monitor the patient and adjust the management as needed Plan of care reviewed with the patient and his nurse. --discharge planning DC home with home health versus acute versus subacute placement as needed Follow PT OT evaluation recommendations Possible discharge in 1 to 2 days if stable History Interval history: I have seen and examined the patient at the bedside Patient's chart and medications reviewed Patient was admitted with acute CVA Neuro work-up is in progress Patient feels slightly better Continues to have right-sided weakness Vital signs reviewed Hospitalist Physical - Constitutional Vitals: Temp Pulse Resp BP Pulse Ox 97.2 F L 89 20 176/102 92 02/29/20 08:45 02/29/20 08:45 02/29/20 08:45 02/29/20 08:47 02/29/20 08:45 General appearance: Present: no acute distress, well-nourished, obese - EENT Eyes: Present: PERRL, EOM intact - Neck Neck: Present: supple, normal ROM - Respiratory Respiratory effort: normal Respiratory: bilateral: diminished, negative: rales, rhonchi, wheezing - Cardiovascular Rhythm: regular Heart Sounds: Present: S1 & S2 - Extremities Extremities: no ischemia, No edema - Abdominal General gastrointestinal: soft, non-tender, non-distended, normal bowel sounds - Integumentary Integumentary: Present: clear, warm - Psychiatric Psychiatric: appropriate mood/affect, cooperative - Neurologic Neurologic: other (Acute CVA, slurred speech, right-sided hemiparesis) HEART Score - HEART Score EKG: Non-specific Age: 45-65 Risk factors: > 3 risk factors or hx of atherosclerotic disease Troponin: Troponin T < 0.010 ng/mL (0.00-0.029) 02/28/20 08:04 Troponin: < normal limit - Critical Actions Critical Actions: 4-6 pts:12-16.6% risk of adverse cardiac event. Should be admi tted Results - Labs CBC & Chem 7: 02/29/20 06:24 02/29/20 06:24 Labs: Laboratory Last Values WBC 8.8 K/mm3 (4.5-11.0) 02/29/20 06:24 RBC 4.88 M/mm3 (3.65-5.03) 02/29/20 06:24 Hgb 14.6 gm/dl (11.8-15.2) 02/29/20 06:24 Hct 41.8 % (35.5-45.6) 02/29/20 06:24 MCV 86 fl (84-94) 02/29/20 06:24 MCH 30 pg (28-32) 02/29/20 06:24 MCHC 35 % (32-34) H 02/29/20 06:24 RDW 13.3 % (13.2-15.2) 02/29/20 06:24 Plt Count 225 K/mm3 (140-440) 02/29/20 06:24 Lymph % (Auto) 27.5 % (13.4-35.0) 02/29/20 06:24 Sequoyah % (Auto) 6.9 % (0.0-7.3) 02/29/20 06:24 Eos % (Auto) 0.4 % (0.0-4.3) 02/29/20 06:24 Baso % (Auto) 0.6 % (0.0-1.8) 02/29/20 06:24 Lymph # (Auto) 2.4 K/mm3 (1.2-5.4) 02/29/20 06:24 Sequoyah # (Auto) 0.6 K/mm3 (0.0-0.8) 02/29/20 06:24 Eos # (Auto) 0.0 K/mm3 (0.0-0.4) 02/29/20 06:24 Baso # (Auto) 0.1 K/mm3 (0.0-0.1) 02/29/20 06:24 Seg Neutrophils % 64.6 % (40.0-70.0) 02/29/20 06:24 Seg Neutrophils # 5.7 K/mm3 (1.8-7.7) 02/29/20 06:24 PT 13.5 Sec. (12.2-14.9) 02/29/20 06:24 INR 1.01 (0.87-1.13) 02/29/20 06:24 APTT 26.7 Sec. (24.2-36.6) 02/28/20 00:00 Sodium 141 mmol/L (137-145) 02/29/20 06:24 Potassium 3.9 mmol/L (3.6-5.0) 02/29/20 06:24 Chloride 103.6 mmol/L (98-107) 02/29/20 06:24 Carbon Dioxide 27 mmol/L (22-30) 02/29/20 06:24 Anion Gap 14 mmol/L 02/29/20 06:24 BUN 13 mg/dL (9-20) 02/29/20 06:24 Creatinine 1.1 mg/dL (0.8-1.3) 02/29/20 06:24 Estimated GFR > 60 ml/min 02/29/20 06:24 BUN/Creatinine Ratio 12 % 02/29/20 06:24 Glucose 218 mg/dL (75-100) H 02/29/20 06:24 POC Glucose 183 (70-105) H 02/29/20 08:16 Hemoglobin A1c 10.2 % (4-6) H 02/28/20 04:00 Calcium 9.2 mg/dL (8.4-10.2) 02/29/20 06:24 Magnesium 1.80 mg/dL (1.7-2.3) 02/28/20 00:00 Total Creatine Kinase 343 units/L (55-170) H 02/28/20 00:00 Troponin T < 0.010 ng/mL (0.00-0.029) 02/28/20 08:04 Triglycerides 235 mg/dL (2-149) H 02/29/20 06:24 Cholesterol 206 mg/dL (50-199) H 02/29/20 06:24 LDL Cholesterol Direct 148 mg/dL (50-130) H 02/29/20 06:24 HDL Cholesterol 38 mg/dL (40-59) L 02/29/20 06:24 Cholesterol/HDL Ratio 5.42 % 02/29/20 06:24 TSH 1.500 mlU/mL (0.270-4.200) 02/28/20 00:00 Acetaminophen 5.0 ug/mL (10.0-30.0) L 02/28/20 00:00 Plasma/Serum Alcohol < 0.01 % (0-0.07) 02/28/20 00:00 - Diagnostic Impressions Diagnostic Impressions: Echocardiogram 02/28/20 01:37 Transthoracic Echocardiogram Indication: Stroke BP: 159/101 HR: 79 Conclusions *EF 60-65% *MOD. LVH *PROBABLE GRADE I DIASTOLIC DYSFUNCTION *NL CHAMBER DIMENSIONS Findings Left Ventricle: The left ventricular chamber size is normal. Moderate concentric left ventricular hypertrophy is observed. Global left ventricular wall motion and contractility are within normal limits. Global left ventricular systolic function is normal. The estimated ejection fraction is 60-65%. Abnormal left ventricular diastolic filling is observed, consistent with impaired relaxation. Right Ventricle: The right ventricular cavity size is normal. Right Atrium: A patent foramen ovale is demonstrated by agitated saline contrast. Aortic Valve: The aortic valve structure is normal. There is no evidence of aortic regurgitation. Mitral Valve: The mitral valve leaflets are mildly thickened. There is no evidence of mitral regurgitation. Tricuspid Valve: The tricuspid valve leaflets are normal. There is trace tricuspid regurgitation. The right ventricular systolic pressure is calculated at 17 mmHg. Pulmonic Valve: The pulmonic valve appears normal. There is no evidence of pulmonic regurgitation. Pericardium: There is no pericardial effusion. Aorta: The aorta appears normal. Venous: The inferior vena cava appears normal. Measurements Chambers 2D Name Value Normal Range IVSd (2D) 1.5 cm (0.6 - 1.1) LVPWd (2D) 1.42 cm (0.6 - 1.1) LVIDd (2D) 4.53 cm (3.7 - 5.6) LVIDs (2D) 2.91 cm (2 - 3.8) LV FS (2D) 35.83 % - EF Teichholz (2D) 65.49 % - Ao root diameter (2D) 3.61 cm (2 - 3.7) Volumes/Mass Name Value Normal Range LA ESV SP 4CH (A/L) 24.17 ml - LA ESV SP 2CH (A/L) 21.2 ml - LA ESV BP (A/L) 22.9 ml - LA ESV BP (A/L) index 9.7 ml/m2 - LA ESV SP 4CH (MOD) 22.49 ml - LA ESV SP 2CH (MOD) 21 ml - LA ESV BP (MOD) 21.77 ml - LA ESV BP (MOD) index 9.23 ml/m2 - Diastolic/Systolic Function Name Value Normal Range MV E-wave Vmax 0.66 m/sec - MV deceleration time 232.95 msec - MV A-wave Vmax 0.7 m/sec - MV E:A ratio 0.94 ratio - Aortic Valve Name Value Normal Range AV Vmax 1.43 m/sec - AV VTI 22.7 cm - AV peak gradient 8.21 mmHg - AV mean gradient 3.99 mmHg - LVOT diameter 2.3 cm - LVOT Vmax 1.04 m/sec - LVOT VTI 19.08 cm - LVOT peak gradient 4.35 mmHg - LVOT mean gradient 2.21 mmHg - SV LVOT 79.47 ml - CHARLES (continuity Vmax) 3.03 cm2 - CHARLES (continuity VTI) 3.5 cm2 - Tricuspid Valve Name Value Normal Range TR Vmax 1.91 m/sec - TR peak gradient 14 mmHg - RAP 3 mmHg - RVSP 17 mmHg - Pulmonic Valve/Qp:Qs Name Value Normal Range PV Vmax 1.19 m/sec - PV peak gradient 5.69 mmHg - MS end-diastolic Vmax 0.8 m/sec - PV acceleration time 159.85 msec - Acosta/IV: Voiding Method Urinal IV Catheter Type [Left INT / Saline Lock Antecubital] IV Catheter Type [Right INT / Saline Lock Antecubital] Active Medications - Current Medications Current Medications: Generic Name Dose Route Start Last Admin Trade Name Freq PRN Reason Stop Dose Admin Acetaminophen 650 mg 02/28/20 01:33 02/28/20 21:54 Tylenol PO 650 mg Q4H PRN Administration Pain, Mild (1-3) Aspirin 325 mg 02/28/20 10:00 02/28/20 09:30 Aspirin PO 325 mg QDAY TANYA Administration Atorvastatin Calcium 40 mg 02/28/20 22:00 02/28/20 21:54 Lipitor PO 40 mg QHS TANYA Administration Bisacodyl 10 mg 02/28/20 01:33 Dulcolax MS QDAY PRN Constipation Clopidogrel Bisulfate 75 mg 02/29/20 10:00 Plavix PO QDAY TANYA Dextrose 0 ml 02/28/20 01:33 D50w (25gm) Syringe IV Q30MIN PRN Hypoglycemia Protocol Enoxaparin Sodium 40 mg 02/28/20 22:00 02/28/20 21:54 Enoxaparin SUB-Q 40 mg QDAY@2200 TANYA Administration Protocol Insulin Human Lispro 0 unit 02/28/20 07:30 02/29/20 08:42 Humalog SUB-Q Not Given ACHS [facility] Protocol Magnesium Hydroxide 30 ml 02/28/20 01:33 Milk Of Magnesia PO Q4H PRN Constipation Metoclopramide HCl 10 mg 02/28/20 01:33 Reglan PO Q6H PRN Nausea And Vomiting Nitroglycerin 0.4 mg 02/28/20 00:31 Nitrostat SL .Q5MIN PRN Chest Pain Ondansetron HCl 4 mg 02/28/20 01:33 Zofran IV Q8H PRN Nausea And Vomiting Promethazine HCl 25 mg 02/28/20 01:33 Phenergan MS Q6H PRN Nausea And Vomiting Sodium Chloride 10 ml 02/28/20 10:00 02/28/20 21:55 Sodium Chloride Flush Syringe 10 Ml IV 10 ml BID TANYA Administration Sodium Chloride 10 ml 02/28/20 01:33 Sodium Chloride Flush Syringe 10 Ml IV PRN PRN LINE FLUSH Nutrition/Malnutrition Assess - Dietary Evaluation Nutrition/Malnutrition Findings: Nutrition Notes Start: 02/28/20 12:37 Freq: Status: Active Protocol: Document 02/28/20 12:37 LM (Rec: 02/28/20 12:51 LM [id number]) Nutrition Notes Need for Assessment generated from: MD Order Initial or Follow up Brief Note Current Diagnosis Diabetes,Hypertension,Stroke Subjective/Other Information MD consult for diet education. Pt was not in room. Nutrition Intervention Follow-Up By: 03/01/20 Additional Comments F/U for diet education/ assessment
[2020-02-29] MEDS: ASPIRIN 325 MG TAB PO SCH (10:47)
[2020-02-29] MEDS: CLOPIDOGREL 75 MG TAB PO SCH (10:47)
[2020-02-29] MEDS: INSULIN NPH/REGULAR 70/30 INJ SUB-Q SCH (19:46)
[2020-02-29] MEDS: ENOXAPARIN 40 MG/0.4 ML INJ SUB-Q SCH (22:34)
[2020-03-01] MEDS: INSULIN LISPRO 100 UNIT/ML VIAL 3 mL SUB-Q SCH ×3 (08:38→17:27)
[2020-03-01] MEDS: ASPIRIN 325 MG TAB PO SCH (10:10)
[2020-03-01] MEDS: INSULIN NPH/REGULAR 70/30 INJ SUB-Q SCH ×2 (10:10→17:27)
[2020-03-01] MEDS: CLOPIDOGREL 75 MG TAB PO SCH (10:10)
--- NOTE | 2020-03-01 16:08 | Discharge Summary ---
Providers - Providers Date of Admission: 02/28/20 19:52 Date of discharge: 03/01/20 Attending physician: SHARON RAMIREZ 02/28/20 Consult to Physician [CONS] Routine Comment: Consulting Provider: PRICE WANG Physician Instructions: Reason For Exam: CVA 02/28/20 01:34 Consult to Dietitian/Nutrition [CONS] Routine Physician Instructions: Reason For Exam: Reason for Consult: Diet education Occupational Therapy Evaluate and Treat [CONS] Routine Comment: Reason For Exam: Neuro deficits Physical Therapy Evaluation and Treat [CONS] Routine Comment: Reason For Exam: Neuro deficits Primary care physician: [facility] Hospitalization Reason for admission: Sudden episode of right-sided weakness and slurred speech/acute CVA Condition: Stable Pertinent studies: CT head without contrast; no acute abnormality CTA head; no significant stenosis or narrowing or occlusions CTA neck; atherosclerotic disease, no significant stenosis Carotid Doppler; no hemodynamically significant stenosis, less than 50% Echocardiogram; EF 60 to 65% MRI brain; acute lacunar infarct in the left paracentral brandon Hospital course: 49-year-old -N[place]alese male with known history of hypertension and diabetes mellitus admitted through the emergency room with history of right- sided weakness and numbness and slurred speech which started early this morning. Patient was said to have woken up at about 9 AM in the morning of 02/27/2020 and noticed that he had some right-sided weakness. Patient was initially evaluated in the ED, evaluated by telemetry neurologist Not a candidate for TPA, admitted to the hospital and had extensive neuro work- up. Patient continues to have right-sided hemiparesis with slurred speech Disposition: [id number] HOME UNDER [facility] Time spent for discharge: 35 min Core Measure Documentation - Palliative Care Palliative Care/ Comfort Measures: Not Applicable - Core Measures Any of the following diagnoses?: stroke - Stroke Discharge Requirements Statin for LDL = or >70 mg/dl on DC: Yes Anticoag for atrial fib/atrial flutter: Not Applicable (No history of A. fib or A.flutter) Antithrombotic for ischemic stroke: Yes Exam - Constitutional Vitals: Temp Pulse Resp BP Pulse Ox 98.7 F 82 20 148/99 95 03/01/20 11:19 03/01/20 11:19 03/01/20 11:19 03/01/20 11:19 03/01/20 11:19 General appearance: Present: no acute distress, well-nourished, obese - EENT Eyes: Present: PERRL, EOM intact - Neck Neck: Present: supple, normal ROM - Respiratory Respiratory effort: normal Respiratory: bilateral: diminished, negative: rales, rhonchi, wheezing - Cardiovascular Rhythm: regular Heart Sounds: Present: S1 & S2 - Extremities Extremities: no ischemia, No edema - Abdominal General gastrointestinal: Present: soft, non-tender, non-distended, normal bowel sounds - Integumentary Integumentary: Present: clear, warm - Musculoskeletal Musculoskeletal: right sided weakness - Psychiatric Psychiatric: appropriate mood/affect, cooperative - Neurologic Neurologic: other (Acute CVA, dysarthria, right hemiparesis) Plan Activity: advance as tolerated, fall precautions Diet: diabetic, other (Cardiac diet) Additional Instructions: Fall precautions. Aspiration precautions. If you have worsening symptoms contact MD or go to emergency room. Advised to see private neurologist in 1 week. Advised to see primary care physician/[facility] in 3 to 5 days. Case management set up home PT/OT few visits. Patient has set up private physical therapy Follow up with: PRIMARY CAREMD [Primary Care Provider] - 3-5 Days SARAH KEITH MD [Staff Physician] - 7 Days Forms: Discharge Signature Page Prescriptions: Aspirin 325 mg PO QDAY #30 tablet metFORMIN [Glucophage] 500 mg PO QDAY #30 tab AtorvaSTATin [Lipitor] 40 mg PO QHS #30 tablet Clopidogrel [Plavix] 75 mg PO QDAY #21 tablet
[2020-03-01 16:21] VITALS: BP 156/109
== END 2020-03-01 19:00 | disposition home health service (06) | DRG 65 ==
LOC: ED 23:27 → 4A 02-28 01:04 → OBSVTOIN 02-28 19:52
PROVIDERS: ADMIT Internal Medicine Geriatric Medicine; ATTEND Internal Medicine
DX: I63.89 Other cerebral infarction (principal); G81.91 Hemiplegia, unspecified affecting right dominant side; I10 Essential (primary) hypertension; R47.81 Slurred speech; Z79.899 Other long term (current) drug therapy; R29.810 Facial weakness; E11.65 Type 2 diabetes mellitus with hyperglycemia; R29.704 NIHSS score 4; R47.1 Dysarthria and anarthria; R13.10 Dysphagia, unspecified; E78.5 Hyperlipidemia, unspecified; Z91.14 Patient's other noncompliance with medication regimen
CPT/HCPCS: 36415; 70450; 70496; 70498; 70551; 71045; 80048; 80061; 80320; 82550; 82962; 83036; 83735; 84443; 84484; 85025; 85610; 85730; 93005; 93306; 93880; 96374; G0378; A9270-GY; G0480; J1650; J1815; J7040; Q9967